=== PATIENT | female | born 1980 | race Caucasian/White ===

== ENCOUNTER 2021-04-12 11:50 | Outpatient (CLI) | payer BC | END 2021-04-12 11:51 | disposition home or self-care (01) | LOC: CSHMAMMO 11:50 | PROVIDERS: ATTEND Family Medicine | DX: Z12.31 Encounter for screening mammogram for malignant neoplasm of breast (principal); Z98.82 Breast implant status | CPT/HCPCS: 77063; 77067 ==

== ENCOUNTER 2024-03-14 07:49 | Outpatient (CLI) | payer BC | END 2024-03-14 07:50 | disposition home or self-care (01) | LOC: CSHULT 07:49 | PROVIDERS: ATTEND Physician Assistant | DX: R10.11 Right upper quadrant pain (principal); K82.4 Cholesterolosis of gallbladder; K76.89 Other specified diseases of liver | CPT/HCPCS: 76705 ==